=== PATIENT | female | born 1975 | race Caucasian/White ===

== ENCOUNTER 2024-02-19 20:34 | Emergency (ER) | payer SELFPAY ==
[~2024-02-19] VITALS: Ht 170.2 cm; Wt 82.0 kg
[2024-02-19 20:48] VITALS: BP 148/90; PULSE 87; RESP 18; TEMP 98.4; O2SAT 100
[2024-02-19] MEDS ORDERED: CYCL10TA21 MT (22:05)
[2024-02-19] MEDS: CYCLOBENZAPRINE 10MG TABLET PO STA (22:54)
== END 2024-02-19 22:56 | disposition home or self-care (01) ==
LOC: ER 20:34
DX: S16.1XXA Strain of muscle, fascia and tendon at neck level, initial encounter (principal); S09.90XA Unspecified injury of head, initial encounter; R51.9 Headache, unspecified; M54.2 Cervicalgia; W18.39XA Other fall on same level, initial encounter; Y93.89 Activity, other specified; Y92.89 Other specified places as the place of occurrence of the external cause; Y99.8 Other external cause status
CPT/HCPCS: 99284